=== PATIENT | female | born 1975 | race Caucasian/White ===

== ENCOUNTER 2016-09-16 04:06 | Inpatient (IN) | payer OTHER ==
--- NOTE | ~2016-09-16 | PN ---
Unit #: [id number] #: [id number] Patient: JENNA TINSLEY [id number] [facility] [address] [place] [address] [id number] MR#: [id number] NAME: JENNA TINSLEY. ROOM: P201 Age: 40 Sex: F Admission Date: 09/16/2016 : 1975 Attending Physician: Rudy Oneill M.D. Admitting Physician: Rudy Oneill M.D. Primary Care Physician: Mark Perez PROGRESS NOTES DATE 09/17/2016 DISCUSSION Ms. Tinsley continues to have active detox symptoms today. Her mood is anxious and depressed with a dysphoric affect. She is alert and fully oriented. Her memory and concentration are [id number]. Thought processes are goal-directed with no psychosis. She is participating in appropriate unit groups and activities. ASSESSMENT Opiate dependence. PLAN Continue with detox protocol. Dictated by... Mark Ricks/anca TD: 09/18/2016 09:08 JOB #: [id number] [facility] PROGRESS NOTES X Rudy Oneill MD PROGRESS NOTE
--- NOTE | ~2016-09-16 | HP ---
Unit #: [id number] #: [id number] Patient: JENNA MORALES [id number] [place] [address] [id number] MR#: [id number] NAME: JENNA MORALES. ROOM: P201 Age: 40 Sex: F Admission Date: 09/16/2016 : 1975 Attending Physician: Rudy Oneill M.D. Admitting Physician: Rudy Oneill M.D. Primary Care Physician: Jose A German M.D. HISTORY AND PHYSICAL HISTORY OF PRESENT ILLNESS Jenna is a 40 year old admitted to [address] [place] [address] because of her polysubstance abuse which include opioids and methamphetamine. PAST MEDICAL HISTORY 1. Long history of elicit substance abuse. 2. Psoriasis. PAST SURGICAL HISTORY section x1. ALLERGIES No known drug allergies. SOCIAL HISTORY She smokes greater than one pack per day. Denies alcohol. Admits to a history of poly illicit substance abuse. FAMILY HISTORY Medically noncontributory. REVIEW OF SYSTEMS CONSTITUTIONAL: No fever or chills. HEENT: Denies any sore throat, ear pain or runny nose. CARDIOVASCULAR: Denies chest pain, irregular heart rhythm or palpitations. CHEST: Denies shortness of breath or cough. No hemoptysis. GASTROINTESTINAL: Denies nausea, vomiting, diarrhea or chronic constipation. ENDOCRINE: Denies history of increased thirst or urination. No recent significant weight loss or gain. GENITOURINARY: Denies dysuria, frequency, or hematuria. SKIN: Denies any rashes. HEMATOLOGIC: Denies history of increased bleeding or bruising. MUSCULOSKELETAL: Denies any hot, swollen joints. No generalized muscle pain. NEUROLOGIC: Denies problems with vision or speech. No frequent, severe headaches. No numbness, tingling or weakness in any extremities. Denies loss of bladder or bowel control. CURRENT MEDICATIONS 1. Neurontin 600 mg t.i.d. 2. Celexa 40 mg daily Unit #: [id number] #: [id number] Patient: JENNA MORALES 3. Loperamide p.r.n. 4. Proventil inhaler p.r.n. 5. Milk of Magnesia p.r.n. 6. Maalox p.r.n. 7. Tylenol p.r.n. 8. Nicotine patch 14 mg daily PHYSICAL EXAMINATION GENERAL: Alert, well-nourished, in no apparent distress. VITAL SIGNS: Blood pressure 120/70, heart rate 100, respirations 16, temperature 98.6. SKIN: Warm and dry. She has thick red dry flat plaquish areas on both elbows. HEENT: Normocephalic. TMs not viewed. Oral and nasal passages clear. Conjunctivae clear. Pupils equal, round and reactive to light and accommodation. Extraocular movements intact. NECK: Supple without lymphadenopathy or thyromegaly. HEART: Regular rate and rhythm without murmur. LUNGS: Clear. ABDOMEN: Soft, nontender. : Not done. EXTREMITIES: No evidence of cyanosis, clubbing or edema. Moves all extremities without focal deficit. NEUROLOGICAL: Grossly within normal limits. Cranial Nerves: II: Visual schmidt are intact. III, IV AND : Extraocular movements are intact. Pupils are equal, round and reactive to light. V: Facial sensation is grossly normal. VII: Facial movements and expression are normal. VIII: Auditory acuity grossly intact. IX, X: Uvula is midline. Phonation is normal. XI: Patient shrugs shoulders and turns head normally. XII: Tongue protrudes in the midline. Sensory and Motor Function: Sensory and motor sensation is grossly normal. Motor: moves all extremities well. Coordination: Gait is normal. Deep Tendon Reflexes: Intact. IMPRESSION 1. Psychiatric admission 2. Psoriasis RECOMMENDATIONS PSYCHIATRIC: Per psychiatrist. MEDICAL: I see no contraindications to participating in facility's activities. MEDICAL PROGNOSIS Good. MEDICAL CONDITION Stable. Dictated by... Rosalba Newman P.A.-C. for Carol Flower M.D. Unit #: [id number] #: [id number] Patient: JENNA MORALES PAR[place]/negro TD: 09/17/2016 00:12 JOB #: [id number] HISTORY AND PHYSICAL X Rosalba Newman X HISTORY AND PHYSICAL
--- NOTE | ~2016-09-16 | DS ---
Unit #: [id number] #: [id number] Patient: JENNA MORALES [id number] [place] [address] [id number] MR#: [id number] NAME: JENNA MORALES. ROOM: P201 Age: 40 Sex: F Admission Date: 09/16/2016 : 1975 Discharge Date: 09/18/2016 Attending Physician: Rudy Oneill M.D. Primary Care Physician: Jose A German M.D. DISCHARGE SUMMARY REASON FOR ADMISSION Jenna is a 40-year-old woman who is in a long-term rehab program for cannabis dependence, who has been smoking methamphetamine with occasional perceptual disturbances. She had increasing helplessness, hopelessness, and suicidal ideation and was admitted for stabilization. DIAGNOSTIC STUDIES LABORATORY RESULTS: Beta-hCG was negative. CMP demonstrated high random glucose of 208, but was otherwise unremarkable. CBC demonstrated a high platelets of 433 and high MCV of 97.5. HOSPITAL COURSE Jenna was admitted and placed on the suicide precautions. Citalopram 20 mg daily was initiated for treatment of depression. Imodium was provided for mild detox from occasional use of opioids and she detoxed from her amphetamine use without any further due. She participated appropriately in unit groups and activities. On the date of discharge, she had obtained placement at the [facility] and was discharged without suicidal ideation, intent, or plan. DISCHARGE DIAGNOSES AXIS I: Stimulant-induced mood disorder; cannabis dependence; depressive disorder, not otherwise specified. AXIS II: No diagnosis. AXIS III: Chronic pain, chronic obstructive pulmonary disease. AXIS IV: AXIS V: DISCHARGE INSTRUCTIONS Follow up with the [facility] and with her primary care physician. DISCHARGE MEDICATIONS Celexa 20 mg daily for depression. Other medications from primary care physician included ProAir inhaler 2 puffs q.i.d. as needed for shortness of air, Neurontin 300 mg two tablets t.i.d. as needed for neuropathy, and hydrocodone/acetaminophen 7.5/325 every 3 to 4 hours as needed for breakthrough pain. CONDITION AT DISCHARGE Improved. Unit #: [id number] #: [id number] Patient: JENNA MORALES PROGNOSIS Fair to good. DIET AND ACTIVITY Per primary care doctor. Dictated by... Mark Ricks/crystal TD: 09/18/2016 23:19 JOB #: [id number] DISCHARGE SUMMARY X Rudy Oneill MD DISCHARGE SUMMARY
--- NOTE | ~2016-09-16 | PA ---
Unit #: [id number] #: [id number] Patient: JENNA MORALES [id number] [place] [address] [id number] MR#: [id number] NAME: JENNA MORALES. ROOM: P201 Age: 40 Sex: F Admission Date: 09/16/2016 : 1975 Date of Assessment: Attending Physician: Rudy Oneill M.D. Admitting Physician: Rudy Oneill M.D. Primary Care Physician: Jose A German M.D. PSYCHIATRIC ASSESSMENT DATE OF SERVICE 09/16/2016. INFORMANTS The patient, reliable; OLOP, reliable. CHIEF COMPLAINT Depression and anxiety. HISTORY OF PRESENT ILLNESS Ms. Morales is a 40-year-old woman, who is currently in her long-term rehab program for chemical dependence, specifically cannabis. She reports that she has been smoking methamphetamine for several days and began to have perceptual disturbances, increased hopelessness, helplessness, and had suicidal thoughts. She reported that her depression medicine is only partially successful. She has not been eating or sleeping and did not feel safe to contract for safety outside of the hospital. She was admitted for detox and stabilization. PAST PSYCHIATRIC HISTORY The patient is currently in the [facility] program on a court order basis. She is taking citalopram 20 mg daily. FAMILY PSYCHIATRIC HISTORY The patient's father was an alcoholic and she reports that alcoholism does run on both sides of her family. SOCIAL HISTORY The patient has a GED and is currently unemployed. She is currently living with her boyfriend and struggles financially. PAST MEDICAL HISTORY The patient has history of COPD and some chronic pain issues. MEDICATIONS Gabapentin 300 mg t.i.d. for pain, hydrocodone 7.5 p.r.n. for pain, ProAir inhaler q.i.d. as needed for COPD. ALLERGIES No known medication allergies. SUBSTANCE USE HISTORY As noted, the patient is currently in a cannabis treatment program and Unit #: [id number] #: [id number] Patient: JENNA MORALES also has a history of abusing amphetamines recently. MENTAL STATUS EXAMINATION The patient presented as a mildly disheveled woman, who appeared her stated age. Vital signs were temperature 97.7, pulse 108, blood pressure 121/70, respirations 18. Her speech was spontaneous and easily understood. Musculoskeletal examination was calm. Her mood was depressed and anxious with a congruent affect. She was alert and fully oriented. Memory and concentration were fair to good. Thought processes were goal directed. She had no active hallucinations, but reported these prior to admission. She had some suicidal ideation and hopelessness. Insight and judgment, fair. Fund of knowledge and abstraction, fair. ASSETS AND LIABILITIES The patient is in general good health and voluntary for treatment. Liabilities include recent relapse. ADMITTING DIAGNOSES AXIS I: Stimulant-induced mood disorder, F15.24; cannabis dependence by history. AXIS II: No diagnosis. AXIS III: Chronic pain, chronic obstructive pulmonary disease. AXIS IV: AXIS V: PSYCHIATRIC PLAN The patient was admitted and placed on suicide precautions. She did not appear to require detox at this time, although we will continue to monitor this situation and initiate detox precautions as appropriate. We will increase her citalopram to 40 mg daily. We will temporarily discontinue Lortab and provide Imodium and other detox medicines as needed. She will enroll in dual diagnosis groups and activities. TREATMENT GOALS Resolution of SI, improvement in insight, and improvement in coping skills. DISCHARGE PLANNING Follow up with her current treatment program and primary care physician as well as community mental health. ESTIMATED LENGTH OF STAY 5 days. Dictated by... Rudy Oneill M.D. VIDA/crystal TD: 09/17/2016 05:21 JOB #: [id number] Unit #: [id number] #: [id number] Patient: JENNA MORALES Irma PSYCHIATRIC ASSESSMENT X Rudy Oneill MD X PSYCHIATRIC ASSESSMENT
[2016-09-17 09:37] LABS: BASOPHIL# 0.1 X10e3 (0-0.3); BASOPHIL% 0.9 % (0-2.5); EOSINOPHIL# 0.2 X10e3 (0-0.7); EOSINOPHIL% 2.1 % (0.0-7.0); HEMATOCRIT 43.8 % (35.0-45.0); HEMOGLOBIN 14.7 gm/dL (12.0-16.0); LYMPHOCYTE% 21.6 % (17.0-45.0); MEAN CELL VOLUME 97.5 FL (83-96); MEAN CORPUSCULAR HEMOGLOBIN 32.8 PG (28-34); MEAN CORPUSCULAR HGB CONC 33.6 g/dL (30-36); MEAN PLATELET VOLUME 8.4 FL (6.5-11.5); MONOCYTE# 0.7 X10e3 (0-1.0); MONOCYTE% 8.1 % (3.0-12.0); NEUTROPHIL# 6.2 X10e3 (1.5-7.1); NEUTROPHIL% 67.3 % (40-75); PLATELET COUNT 433 X10e3 (140-420); RED BLOOD COUNT 4.49 X10e (3.90-5.30); WHITE BLOOD COUNT 9.2 X10e3 (4.0-10.5)
[2016-09-17 09:47] LABS: DIFF IND NO
[2016-09-17 10:06] LABS: ALBUMIN SERUM 4.4 g/dL (3.5-5.0); ALKALINE PHOSPHATASE 65 U/L (32-92); ALT (SGPT) 15 U/L (10-40); AST (SGOT) 22 U/L (10-42); BILIRUBIN,TOTAL 0.9 mg/dL (0.2-2.0); BLOOD UREA NITROGEN 23 mg/dL (9-23); BUN/CREATININE RATIO 28.75; CARBON DIOXIDE 27 mmol/L (22-31); CHLORIDE 104 mmol/L (100-111); CREATININE SERUM 0.8 mg/dL (0.6-1.4); GLOM FILT RATE Estimated ABOVE60 mL/min (>60); GLUCOSE FASTING 208 mg/dL (70-110); POTASSIUM 4.4 mmol/L (3.5-5.1); PROTEIN TOTAL SERUM 7.7 g/dL (6.0-8.3); SODIUM 140 mmol/L (135-145)
== END 2016-09-18 14:32 | disposition home or self-care (01) | DRG 897 ==
LOC: P2S 04:06
PROVIDERS: Psychiatry & Neurology Psychiatry
PROC: HZ2ZZZZ Detoxification Services for Substance Abuse Treatment (ICD-10-PCS; principal; 2016-09-16)
DX: F15.24 Other stimulant dependence with stimulant-induced mood disorder (principal); F10.20 Alcohol dependence, uncomplicated; J44.9 Chronic obstructive pulmonary disease, unspecified; F12.20 Cannabis dependence, uncomplicated; G89.29 Other chronic pain; L40.9 Psoriasis, unspecified; F17.200 Nicotine dependence, unspecified, uncomplicated
CPT/HCPCS: 80053; 84703; 85025